=== PATIENT | male | born 1975 | race Caucasian/White ===

== ENCOUNTER 2018-06-03 20:24 | Emergency (ER) | payer MEDICAID, OTHER ==
[~2018-06-03] VITALS: Ht 172.7 cm; Wt 87.0 kg
[2018-06-03 23:57] VITALS: BP 127/61
== END 2018-06-03 23:57 | disposition home or self-care (01) ==
LOC: ER 20:24
DX: S61.412D Laceration without foreign body of left hand, subsequent encounter (principal); F17.200 Nicotine dependence, unspecified, uncomplicated; F12.10 Cannabis abuse, uncomplicated; F15.10 Other stimulant abuse, uncomplicated; X58.XXXD Exposure to other specified factors, subsequent encounter
CPT/HCPCS: 99281

== ENCOUNTER 2020-04-05 03:32 | Emergency (ER) | payer OTHER ==
[~2020-04-05] VITALS: Ht 167.6 cm; Wt 82.0 kg
[2020-04-05 03:39] VITALS: BP 130/93
== END 2020-04-05 04:53 | disposition home or self-care (01) ==
LOC: ER 03:32
DX: R91.1 Solitary pulmonary nodule (principal); F12.10 Cannabis abuse, uncomplicated; F15.10 Other stimulant abuse, uncomplicated
CPT/HCPCS: 71045; 99283

== ENCOUNTER 2021-02-12 14:42 | Emergency (ER) | payer OTHER ==
[~2021-02-12] VITALS: Ht 175.3 cm; Wt 87.0 kg
[2021-02-12] MEDS ORDERED: IBUPROFEN 600MG TABLET PO STA (15:11)
[2021-02-12] MEDS ORDERED: NAPR-681 PO (15:53)
[2021-02-12 16:00] VITALS: BP 139/106
== END 2021-02-12 16:14 | disposition home or self-care (01) ==
LOC: ER 14:42
DX: M79.671 Pain in right foot (principal); M79.672 Pain in left foot; L84 Corns and callosities; F12.10 Cannabis abuse, uncomplicated; F15.10 Other stimulant abuse, uncomplicated
CPT/HCPCS: 99282

== ENCOUNTER 2021-02-14 20:41 | Emergency (ER) | payer MEDICAID, OTHER ==
[~2021-02-14] VITALS: Ht 172.7 cm; Wt 86.0 kg
[~2021-02-14 20:41] MED LIST: NAPR-681 PO
[2021-02-14 20:52] VITALS: BP 101/80
[2021-02-14] MEDS ORDERED: CLOT15CR27 TP (23:08)
== END 2021-02-15 01:02 | disposition home or self-care (01) ==
LOC: ER 20:41
DX: B35.3 Tinea pedis (principal); F12.10 Cannabis abuse, uncomplicated; F15.10 Other stimulant abuse, uncomplicated
CPT/HCPCS: 99282

== ENCOUNTER 2021-05-29 12:16 | Emergency (ER) | payer MEDICAID, OTHER ==
[~2021-05-29] VITALS: Ht 170.2 cm; Wt 87.0 kg
[~2021-05-29 12:16] MED LIST changes: +CLOT15CR27 TP
[2021-05-29 12:17] VITALS: BP 122/88
== END 2021-05-29 15:09 | disposition home or self-care (01) ==
LOC: ER 12:16
DX: Z04.89 Encounter for examination and observation for other specified reasons (principal)
CPT/HCPCS: 99283

== ENCOUNTER 2022-02-24 11:20 | Emergency (ER) | payer MEDICAID, OTHER ==
[~2022-02-24] VITALS: Ht 175.3 cm; Wt 91.0 kg
[2022-02-24 11:36] VITALS: BP 126/84
[2022-02-24] MEDS ORDERED: ONDANSETRON 4MG ODT PO ONE (11:45)
[2022-02-24 12:54] LABS: *AMPHETAMINES SCREEN URINE PRESUMTIVE POSITIVE (NEGATIVE); *BARBITURATES SCREEN URINE NEGATIVE (NEGATIVE); *BENZODIAZEPINES SCREEN URINE NEGATIVE (NEGATIVE); *COCAINE SCREEN URINE NEGATIVE (NEGATIVE); CANNABINOID URINE SCREEN NEGATIVE (NEGATIVE); METHADONE URINE SCREEN NEGATIVE (NEGATIVE); OPIATES URINE SCREEN NEGATIVE (NEGATIVE); PHENCYCLIDINE URINE SCREEN NEGATIVE (NEGATIVE)
== END 2022-02-24 15:10 | disposition home or self-care (01) ==
LOC: ER 11:20
DX: F15.10 Other stimulant abuse, uncomplicated (principal); R10.9 Unspecified abdominal pain; R44.0 Auditory hallucinations
CPT/HCPCS: 80305; 99283; Q0162

== ENCOUNTER 2022-05-05 17:31 | Emergency (ER) | payer MEDICAID ==
[~2022-05-05] VITALS: Ht 170.2 cm; Wt 78.0 kg
[2022-05-05 18:49] LABS: CLARITY URINE CLEAR (CLEAR); COLOR URINE YELLOW (YELLOW); KETONES URINE NEGATIVE (NEGATIVE); LEUKOCYTE ESTERASE URINE NEGATIVE (NEGATIVE); NITRITE URINE NEGATIVE (NEGATIVE); OCCULT BLOOD URINE NEGATIVE (NEGATIVE); PROTEIN URINE NEGATIVE (NEGATIVE); SPECIFIC GRAVITY URINE 1.008 (1.005-1.030); UROBILINOGEN URINE 0.2 E.U./dL (0.2-1.0)
[2022-05-05 18:58] LABS: *AMPHETAMINES SCREEN URINE PRESUMTIVE POSITIVE (NEGATIVE); *BARBITURATES SCREEN URINE NEGATIVE (NEGATIVE); *BENZODIAZEPINES SCREEN URINE NEGATIVE (NEGATIVE); *COCAINE SCREEN URINE NEGATIVE (NEGATIVE); CANNABINOID URINE SCREEN NEGATIVE (NEGATIVE); METHADONE URINE SCREEN NEGATIVE (NEGATIVE); OPIATES URINE SCREEN NEGATIVE (NEGATIVE); PHENCYCLIDINE URINE SCREEN NEGATIVE (NEGATIVE)
[2022-05-05 23:19] LABS: BASOPHILS % 0.3 % (0.0-2.0); EOSINOPHILS % 1.3 % (0.0-5.0); HEMATOCRIT. 52.1 % (42.0-52.0); HEMOGLOBIN. 17.2 g/dL (14.0-18.0); LYMPHOCYTES % 44.2 % (20.0-50.0); MEAN CORPUSCULAR HEMOGLOBIN 30.4 pg (28.0-32.0); MEAN CORPUSCULAR VOLUME 92.1 fL (80.0-94.0); MEAN PLATELET VOLUME 6.7 fl (7.4-10.4); MONOCYTES % 10.1 % (2.0-8.0); NEUTROPHILS % 44.1 % (40.0-76.0); PLATELET 291 x1000/uL (130-400); RED BLOOD CELL COUNT 5.66 mill/uL (4.7-6.1); RED CELL DISTRIBUTION WIDTH 14.6 % (11.6-14.6)
[2022-05-05] MEDS ORDERED: HALOPERIDOL LACTATE 5MG/ML VIAL IM ONE ×2 (23:30)
[2022-05-05] MEDS ORDERED: DIPHENHYDRAMINE 50MG/ML VIAL IM PRN (23:30)
[2022-05-05] MEDS ORDERED: LORAZEPAM 2MG/ML CPJ IM PRN (23:30)
[2022-05-05 23:31] LABS: CHLORIDE 113 mEq/L (98-107)
[2022-05-05 23:44] LABS: ETHANOL BLOOD < 10 mg/dL
[2022-05-06] MEDS: OLANZAPINE 5MG TABLET PO SCH ×2 (10:30→17:53)
[2022-05-06 19:42] VITALS: BP 127/87
== END 2022-05-06 19:45 | disposition home or self-care (01) ==
LOC: ER 17:31
DX: F16.10 Hallucinogen abuse, uncomplicated (principal); T43.655A Adverse effect of methamphetamines, initial encounter; Y92.9 Unspecified place or not applicable
CPT/HCPCS: 36415; 80053; 80305; 80307; 80320; 80329; 81003; 82140; 83690; 84443; 85025; 96372; 99285; J1200; J1630; J2060; Z7610; G0480

== ENCOUNTER 2022-05-09 18:51 | Emergency (ER) | payer MEDICAID ==
[~2022-05-09] VITALS: Ht 180.3 cm; Wt 91.0 kg
[2022-05-09 18:53] VITALS: BP 157/91
== END 2022-05-09 22:14 | disposition home or self-care (01) ==
LOC: ER 18:51
DX: F15.10 Other stimulant abuse, uncomplicated (principal); R46.2 Strange and inexplicable behavior
CPT/HCPCS: 99281

== ENCOUNTER 2022-09-14 20:13 | Emergency (ER) | payer MEDICAID, OTHER ==
[~2022-09-14] VITALS: Ht 172.7 cm; Wt 80.0 kg
[2022-09-14 20:18] VITALS: O2SAT 96
[2022-09-14 23:14] LABS: *AMPHETAMINES SCREEN URINE PRESUMTIVE POSITIVE (NEGATIVE); *BARBITURATES SCREEN URINE NEGATIVE (NEGATIVE); *BENZODIAZEPINES SCREEN URINE NEGATIVE (NEGATIVE); *COCAINE SCREEN URINE NEGATIVE (NEGATIVE); CANNABINOID URINE SCREEN NEGATIVE (NEGATIVE); METHADONE URINE SCREEN NEGATIVE (NEGATIVE); OPIATES URINE SCREEN NEGATIVE (NEGATIVE); PHENCYCLIDINE URINE SCREEN NEGATIVE (NEGATIVE)
[2022-09-14 23:23] LABS: BASOPHILS % 0.5 % (0.0-2.0); EOSINOPHILS % 3.9 % (0.0-5.0); HEMATOCRIT. 44.3 % (42.0-52.0); HEMOGLOBIN. 15.4 g/dL (14.0-18.0); LYMPHOCYTES % 37.2 % (20.0-50.0); MEAN CORPUSCULAR HEMOGLOBIN 30.7 pg (28.0-32.0); MEAN CORPUSCULAR VOLUME 88.7 fL (80.0-94.0); MEAN PLATELET VOLUME 6.6 fl (7.4-10.4); NEUTROPHILS % 49.4 % (40.0-76.0); PLATELET 244 x1000/uL (130-400)
[2022-09-14 23:31] LABS: CHLORIDE 109 mEq/L (98-107)
[2022-09-14 23:37] LABS: ETHANOL BLOOD < 10 mg/dL (-10)
[2022-09-15 14:13] VITALS: BP 128/72; PULSE 73; RESP 18; TEMP 98
== END 2022-09-15 14:16 | disposition home or self-care (01) ==
LOC: ER 20:13
DX: G47.00 Insomnia, unspecified (principal); F20.9 Schizophrenia, unspecified; F15.10 Other stimulant abuse, uncomplicated
CPT/HCPCS: 36415; 80048; 80305; 80307; 80320; 80329; 85025; 99285; G0480